=== PATIENT | male | born 1980 | race Caucasian/White ===

== ENCOUNTER 2017-04-07 19:12 | Emergency (ER) | payer MEDICAID ==
[~2017-04-07] VITALS: Ht 167.6 cm; Wt 117.5 kg
[2017-04-07 19:16] VITALS: Ht 167.6 cm; Wt 117.5 kg
[2017-04-07] MEDS ORDERED: KETOROLAC 30 MG INJ IV STA (19:34)
[2017-04-07] MEDS ORDERED: SOD CHLORIDE 0.9% 1,000 ML IV STA (19:34)
[2017-04-07] MEDS ORDERED: ONDANSETRON 4 MG INJ IV STA (19:34)
[2017-04-07 20:06] LABS: BASOPHILS % 0.3 % (0.0-2.0); HEMATOCRIT 47.6 % (42.0-52.0); LYMPHOCYTES # 1.3 10^3/ul (0.8-2.9); LYMPHOCYTES % 12.5 % (15.0-51.0); MEAN CORPUSCULAR HEMOGLOBIN 28.9 pg (29.0-33.0); MEAN CORPUSCULAR HGB CONC 35.7 g/dl (32.0-37.0); MEAN PLATELET VOLUME 10.3 fl (7.4-10.4); MONOCYTE # 0.6 10^3/ul (0.3-0.9); MONOCYTES % 5.9 % (0.0-11.0); NEUTROPHILS % 80.9 % (39.0-77.0); PLATELET COUNT 215 10^3/UL (140-415); RED BLOOD COUNT 5.88 10^6/ul (4.70-6.10); RED CELL DISTRIBUTION WIDTH 12.4 % (11.5-14.5); WHITE BLOOD COUNT 10.3 10^3/ul (4.8-10.8)
[2017-04-07 20:16] LABS: ADD UMIC YES; UR ASCORBIC ACID NEGATIVE (NEGATIVE); UR BILIRUBIN (Dip) NEGATIVE (NEGATIVE); UR BLOOD (Dip) NEGATIVE (NEGATIVE); UR CLARITY SLIGHTLY CLOUDY (CLEAR); UR COLOR AMBER (YELLOW); UR GLUCOSE (Dip) 3+ mg/dL (NEGATIVE); UR KETONES (Dip) 1+ mg/dL (NEGATIVE); UR LEUKOCYTE ESTERASE (Dip) NEGATIVE Leu/ul (NEGATIVE); UR MUCUS MANY /HPF (NONE SEEN); UR NITRITE (Dip) NEGATIVE (NEGATIVE); UR RBC 2 /HPF (0-5); UR SPECIFIC GRAVITY (Dip) 1.033 (1.003-1.030); UR TOTAL PROTEIN (Dip) 2+ mg/dl (NEGATIVE); UR UROBILINOGEN (Dip) 1+ mg/dL (NEGATIVE)
[2017-04-07 20:23] LABS: INR 1.08; PARTIAL THROMBOPLASTIN TIME 26.8 Sec (25.0-35.0); PT RATIO 1.1
[2017-04-07 20:27] LABS: ALBUMIN 4.7 g/dl (3.3-4.9); ALBUMIN/GLOBULIN RATIO 1.38; BILIRUBIN,INDIRECT 0.8 mg/dl (0-1.1); BILIRUBIN,TOTAL 0.8 mg/dl (0.2-1.3); CALCIUM 10.5 mg/dl (8.4-10.2); CREATININE 0.77 mg/dl (0.61-1.24); POTASSIUM 3.7 mmol/L (3.5-5.1); TOTAL PROTEIN 8.1 g/dl (6.1-8.1)
--- NOTE | 2017-04-07 20:34 | ERD ---
ER Documentation Chief Complaint Date/Time DATE: 04/07/17 TIME: 20:32 Chief Complaint MID UPPER QUAD AP X2 DAYS +N/V/DIARRHEA HPI This patient is a 36-year-old male with no past surgical history of medical history presenting to the emergency department with complaints of left lower quadrant pain worsening over the past 2 days. Symptoms are intermittent. Pain is 8 out of 10. Pain is exacerbated after eating. Associated symptoms include nausea, vomiting, and anorexia. He has never had this pain in the past. He also had fever yesterday. He denies urinary symptoms, blood in the vomit, or other symptoms currently. ROS All systems reviewed and are negative except as per history of present illness. Medications Home Meds Active Scripts Acetaminophen* (Tylenol*) 325 Mg Tablet, 2 TAB PO Q6 Y for PAIN AND OR ELEVATED TEMP, #20 TAB Prov:JESUS PEACOCK PA-C 04/07/17 Ciprofloxacin Hcl* (Ciprofloxacin Hcl*) 500 Mg Tablet, 500 MG PO BID for 7 Days , #14 TAB Prov:JESUS PEACOCK PA-C 04/07/17 Metronidazole* (Flagyl*) 500 Mg Tablet, 500 MG PO TID for 7 Days, #21 TAB Prov:JESUS PEACOCK PA-C 04/07/17 Metformin* (Glucophage*) 500 Mg Tab, 500 MG PO BID, #20 TAB Prov:JESUS PEACOCK PA-C 04/07/17 Allergies Allergies: Coded Allergies: No Known Allergy (Unverified , 04/07/17) PMhx/Soc Hx Alcohol Use: No Hx Substance Use: No Hx Tobacco Use: No Smoking Status: Never smoker Physical Exam Vitals Vital Signs Date Time Temp Pulse Resp B/P Pulse Ox O2 Delivery O2 Flow Rate FiO2 04/07/17 23:02 99.2 87 18 132/82 97 Room Air 04/07/17 19:16 99.0 116 20 137/96 97 Physical Exam Const: Nontoxic, well-appearing male in mild distress secondary to pain. Head: Atraumatic Eyes: Normal Conjunctiva ENT: Normal External Ears, Nose and Mouth. Neck: Full range of motion..~ No meningismus. Resp: Clear to auscultation bilaterally Cardio: Regular rate and rhythm, no murmurs Abd: Soft, diffuse generalized abdominal tenderness but no rebound tenderness or guarding, non distended. Normal bowel sounds. No significant McBurney's point tenderness. Skin: No petechiae or rashes Back: No midline or flank tenderness Ext: No cyanosis, or edema Neur: Awake and alert Psych: Normal Mood and Affect Result Diagram: 04/07/17195404/07/171954 Results 24 hrs Laboratory Tests Test 04/07/17 19:51 04/07/17 19:55 04/07/17 22:20 04/07/17 22:59 Urine Color BIENVENIDO Urine Clarity SLIGHTLY CLOUDY Urine pH 6.0 Urine Specific [place] 1.033 Urine Ketones 1+mg/dL Urine Nitrite NEGATIVEmg/dL Urine Bilirubin NEGATIVEmg/dL Urine Urobilinogen 1+mg/dL Urine Leukocyte Esterase NEGATIVELeu/ul Urine Microscopic RBC 2/HPF Urine Microscopic WBC 2/HPF Urine Mucus MANY/HPF Urine Hemoglobin NEGATIVEmg/dL Urine Glucose 3+mg/dL Urine Total Protein 2+mg/dl White Blood Count 10.310^3/ul Red Blood Count 5.8810^6/ul Hemoglobin 17.0g/dl Hematocrit 47.6% Mean Corpuscular Volume 81.0fl Mean Corpuscular Hemoglobin 28.9pg Mean Corpuscular Hemoglobin Concent 35.7g/dl Red Cell Distribution Width 12.4% Platelet Count 25247^3/UL Mean Platelet Volume 10.3fl Neutrophils % 80.9% Lymphocytes % 12.5% Monocytes % 5.9% Eosinophils % 0.0% Basophils % 0.3% Nucleated Red Blood Cells % 0.0/100WBC Neutrophils # (Manual) 810^3/ul Lymphocytes # 1.310^3/ul Monocytes # 0.610^3/ul Eosinophils # 0.010^3/ul Basophils # 0.010^3/ul Nucleated Red Blood Cells # 0.010^3/ul Prothrombin Time 14.0Sec Prothrombin Time Ratio 1.1 INR International Normalized Ratio 1.08 Activated Partial Thromboplast Time 26.8Sec Sodium Level 141mmol/L Potassium Level 3.7mmol/L Chloride Level 98mmol/L Carbon Dioxide Level 23mmol/L Anion Gap 24 Blood Urea Nitrogen 15mg/dl Creatinine 0.77mg/dl Glucose Level 279mg/dl Calcium Level 10.5mg/dl Total Bilirubin 0.8mg/dl Direct Bilirubin 0.00mg/dl Indirect Bilirubin 0.8mg/dl Aspartate Amino Transf (AST/SGOT) 42IU/L Alanine Aminotransferase (ALT/SGPT) 125IU/L Alkaline Phosphatase 110IU/L Total Protein 8.1g/dl Albumin 4.7g/dl Globulin 3.40g/dl Albumin/Globulin Ratio 1.38 Lipase 46U/L Bedside Glucose 241mg/dL 226mg/dL Current Medications Medications (Trade) Dose Ordered Sig/Tania Route PRN Reason Start Time Stop Time Status Last Admin Dose Admin Sodium Chloride (NS) 1,000 ml @ 1,000 mls/hr Q1H STAT IV 04/07/17 19:34 04/07/17 20:33 DC 04/07/17 19:51 Ondansetron HCl (Zofran Inj) 4 mg ONCE STAT IV 04/07/17 19:34 04/07/17 19:36 DC 04/07/17 19:52 Ketorolac Tromethamine (Toradol) 30 mg ONCE STAT IV 04/07/17 19:34 04/07/17 19:36 DC 04/07/17 19:52 Insulin Human Lispro (Humalog) 5 unit ONCE STAT SC 04/07/17 21:57 04/07/17 21:59 DC 04/07/17 22:20 Procedures/MDM EMERGENCY DEPARTMENT COURSE / MEDICAL DECISION MAKING: This is a 36-year-old male who comes to the emergency room secondary to complaints of abdominal pain The patient was given IV Toradol, IV Zofran in the department. On re-evaluation , the patient was feeling improved. Lab results reviewed. CBC: No significant acute abnormalities. Chemistry: Sugar was initially elevated at 289, but lowered to 226 prior to discharge after 1 L of fluids and 5 units of regular insulin. UA: Positive for ketones, positive for glucose, no sign of infection. Lipase: Within normal limits. After receiving chemistry results and elevated sugar, elevated anion gap, and urinalysis positive for ketones and glucose I enlisted the help of my supervising physician, Dr. Robbie Garces, who recommended 5 units of regular insulin. He overall agreed with the assessment, plan, and ED course. Radiology: PROCEDURE: CT ABDOMEN AND PELVIS WITHOUT CONTRAST: CLINICAL INDICATION: 36-year of age, male, left upper quadrant pain . COMPARISON: None available. TECHNIQUE: CT of the abdomen and pelvis was performed without intravenous contrast. Oral contrast was not administered prior to the examination. Coronal and sagittal reformatted images were obtained from the axial source images. Images were reviewed on a high-resolution PACS workstation. Dose information: Based on a 32 cm phantom, the estimated radiation dose (CTDI vol mGy) for each series in this exam is 23. The estimated cumulative dose ( DLP mGy-cm) is 1430. FINDINGS: In the absence of intravenous contrast, the study constitutes a limited assessment of the solid organs, bowel and vessels. LUNG BASES: 0.4 cm right middle lobe pulmonary nodule. ABDOMEN/PELVIS: Liver: Diffusely hypodense in keeping with moderate steatosis. Hepatomegaly measuring 23 cm in length. Gallbladder: Normal noncontrast appearance. Bile ducts: No intrahepatic or extrahepatic biliary duct dilatation. Spleen: Mild splenomegaly measuring 14.4 cm in length. There is an accessory spleen. Pancreas: Normal noncontrast appearance. Adrenal glands: Normal noncontrast appearance. Kidneys and ureters: Normal noncontrast appearance. Negative for urinary calculi or hydronephrosis Aorta and IVC: Normal noncontrast appearance. Lymph nodes: Normal noncontrast appearance. Gastrointestinal tract: There is mild wall thickening of the ascending colon with mild edema in the surrounding fat and engorgement of the pericolic vessels. Bowel loops are decompressed. Appendix: Normal Bladder: Normal noncontrast appearance. Pelvic Organs: Normal noncontrast appearance. Peritoneal cavity: No free fluid or free intraperitoneal air. Abdominal wall: Normal noncontrast appearance. BONES: Musculoskeletal: No suspicious bone lesions. IMPRESSION: Hepatomegaly and hepatic steatosis. This is a potential cause for right upper quadrant pain. Recommend correlation with liver tests to evaluate for potential steatohepatitis. Wall thickening of the ascending colon with edema in the surrounding fat is concerning for segmental colitis that could be due to infection, inflammatory bowel disease or ischemic colitis. Evaluation is limited without intravenous contrast. This is a potential cause for right abdominal pain and diarrhea. Negative for urinary calculi or hydronephrosis. Cause for left upper quadrant pain is not evident. Mild splenomegaly. RPTAT: HCTS Claudiay Sadro, Physician Date Time Electronically viewed and signed by Physician Kim on 04/07/2017 21: 39 PROCEDURE: Limited ultrasound of the gallbladder. CLINICAL INDICATION: 36 years of age, male. Abdominal pain. TECHNIQUE: Multiple real-time longitudinal and transverse images of the gallbladder and the bile ducts were acquired utilizing a curved array transducer. Images were reviewed on a high-resolution PACS workstation. COMPARISON: Noncontrast CT from the same day FINDINGS: Pancreas: Not well visualized Liver appearance: Echogenic with attenuation of the sonographic pain in keeping with the moderate to severe steatosis. Liver length: 22.6 cm Bile Ducts: No intrahepatic or extrahepatic biliary ductal dilatation. CBD: 0.4 cm. Gallbladder: Normal. Gallbladder wall measures 2.9 mm. Negative for gallstones. Gallbladder sludge. Main portal vein is patent with hepatopetal flow. Right kidney length: 11 cm. Right kidney appearance: Normal. Other: None. IMPRESSION: Moderate to severe hepatic steatosis and hepatomegaly. This is a potential cause for right upper quadrant pain. Recommend correlation with liver tests to evaluate for potential steatohepatitis. Gallbladder appears normal. Negative for gallstones. RPTAT: HCTS Physician Kim Date Time Electronically viewed and signed by Physician Kim on 04/07/2017 21: 43 The primary diagnosis is abdominal pain of unclear etiology. I have low suspicion for mesenteric ischemia, appendicitis, cholecystitis, bowel obstruction, sepsis, or other emergent conditions Abdominal pain may be secondary to colitis found on CT scan. Discharge: I have discussed the lab results and diagnostic findings with the patient and answered any questions or concerns. The patient was discharged with a prescription for ciprofloxacin, Flagyl, Tylenol, and metformin at this time.. The patient was advised to followup with their PMD in 1-2 days and to return to the Emergency Department if there are any new or worsening symptoms. The patient understood and agreed with the diagnosis, treatment and plan. The patient is stable for discharge at this time. Departure Diagnosis: Primary Impression: Abdominal pain Condition: JESUS Cervantes PA-C Apr 07, 2017 20:34
--- NOTE | 2017-04-07 21:40 | RADRPT ---
AMENDMENT: 04/19/2017 10:45:45 PM Ana Nunez M.D One or more of the following dose reduction techniques were used: - Automated exposure control. - Adjustment of the mA and/or kV according to patient size. - Use of iterative reconstruction technique. PROCEDURE: CT ABDOMEN AND PELVIS WITHOUT CONTRAST: CLINICAL INDICATION: 36-year of age, male, left upper quadrant pain . COMPARISON: None available. TECHNIQUE: CT of the abdomen and pelvis was performed without intravenous contrast. Oral contrast wa s not administered prior to the examination. Coronal and sagittal reformatted images were obtained from the axial source images. Images were revi ewed on a high-resolution PACS workstation. Dose information: Based on a 32 cm phantom, the estimated radiation dose (CTDI vol mGy) for each ser ies in this exam is 23. The estimated cumulative dose (DLP mGy-cm) is 1430. FINDINGS: In the absence of intravenous contrast, the study constitutes a limited assessment of the solid orga ns, bowel and vessels. LUNG BASES: 0.4 cm right middle lobe pulmonary nodule. ABDOMEN/PELVIS: Liver: Diffusely hypodense in keeping with moderate steatosis. Hepatomegaly measuring 23 cm in lengt h. Gallbladder: Normal noncontrast appearance. Bile ducts: No intrahepatic or extrahepatic biliary duct dilatation. Spleen: Mild splenomegaly measuring 14.4 cm in length. There is an accessory spleen. Pancreas: Normal noncontrast appearance. Adrenal glands: Normal noncontrast appearance. Kidneys and ureters: Normal noncontrast appearance. Negative for urinary calculi or hydronephrosis Aorta and IVC: Normal noncontrast appearance. Lymph nodes: Normal noncontrast appearance. Gastrointestinal tract: There is mild wall thickening of the ascending colon with mild edema in the surrounding fat and engorgement of the pericolic vessels. Bowel loops are decompressed. Appendix: Normal Bladder: Normal noncontrast appearance. Pelvic Organs: Normal noncontrast appearance. Peritoneal cavity: No free fluid or free intraperitoneal air. Abdominal wall: Normal noncontrast appearance. BONES: Musculoskeletal: No suspicious bone lesions. IMPRESSION: Hepatomegaly and hepatic steatosis. This is a potential cause for right upper quadrant pain. Recom mend correlation with liver tests to evaluate for potential steatohepatitis. Wall thickening of the ascending colon with edema in the surrounding fat is concerning for segmental colitis that could be due to infection, inflammatory bowel disease or ischemic colitis. Evaluation is limited without intravenous contrast. This is a potential cause for right abdominal pain and sylvia rrhea. Negative for urinary calculi or hydronephrosis. Cause for left upper quadrant pain is not evident. Mild splenomegaly. RPTAT: HCTS Physician Kim Date Time Electronically viewed and signed by Milton Nunez Physician on 04/19/2017 22:46 CS/
--- NOTE | 2017-04-07 21:43 | RADRPT ---
PROCEDURE: Limited ultrasound of the gallbladder. CLINICAL INDICATION: 36 years of age, male. Abdominal pain. TECHNIQUE: Multiple real-time longitudinal and transverse images of the gallbladder and the bile d ucts were acquired utilizing a curved array transducer. Images were reviewed on a high-resolution [facility] workstation. COMPARISON: Noncontrast CT from the same day FINDINGS: Pancreas: Not well visualized Liver appearance: Echogenic with attenuation of the sonographic pain in keeping with the moderate to severe steatosis. Liver length: 22.6 cm Bile Ducts: No intrahepatic or extrahepatic biliary ductal dilatation. CBD: 0.4 cm. Gallbladder: Normal. Gallbladder wall measures 2.9 mm. Negative for gallstones. Gallbladder sludge . Main portal vein is patent with hepatopetal flow. Right kidney length: 11 cm. Right kidney appearance: Normal. Other: None. IMPRESSION: Moderate to severe hepatic steatosis and hepatomegaly. This is a potential cause for right upper qu adrant pain. Recommend correlation with liver tests to evaluate for potential steatohepatitis. Gallbladder appears normal. Negative for gallstones. RPTAT: HCTS Physician Kim Date Time Electronically viewed and signed by Physician Kim on 04/07/2017 21:43 /
[2017-04-07] MEDS ORDERED: INSULIN LISPRO 100 UNIT/ML VIAL SC STA (21:57)
[2017-04-07] MEDS ORDERED: METF500T4 PO (22:44)
[2017-04-07] MEDS ORDERED: CIPR500T4 PO (22:45)
[2017-04-07] MEDS ORDERED: ACET325T33 PO (22:45)
[2017-04-07] MEDS ORDERED: METR500T PO (22:45)
[2017-04-07 23:02] VITALS: BP 132/82; PULSE 87; RESP 18; TEMP 99.2
== END 2017-04-07 23:04 | disposition home or self-care (01) ==
LOC: FTE 19:12
DX: R10.84 Generalized abdominal pain (principal); R11.2 Nausea with vomiting, unspecified; Z79.84 Long term (current) use of oral hypoglycemic drugs
CPT/HCPCS: 36415; 74176; 76705; 80053; 81001; 82962; 83690; 85025; 85610; 85730; 87086; 96361; 96372; 96374; 96375; J1815; J1885; J2405; J7030; Z7502